=== PATIENT | female | born 1940 | race Caucasian/White ===

== ENCOUNTER 2021-12-16 21:55 | Emergency (ER) | payer OTHER ==
[~2021-12-16] VITALS: Ht 167.6 cm; Wt 50.8 kg
[~2021-12-16 21:55] MED LIST: ASPIR-TRIN325 MG PO; ATROVENT HFA12.9 GM; CALTRATE 600 W1 EACH PO; CRANBERRY500 MG PO; FISH OIL 1,0001 EACH PO; FUROSEMIDE20 MG PO; GEMFIBROZIL600 MG PO; HYDRALAZINE HCL10 MG PO; HYDROCODON-ACE1 EA11 PO; IMIPRAMINE PAM100 MG PO; POTASSIUM99 M1 PO; SPIRIVA18 MCG INH; VALIUM5 MG PO; VENTOLIN HFA18 GM INH; VITAMIN D31000 UNI1 PO
[2021-12-16 22:33] LABS: BASOPHILS # (AUTO) 0.1 (0.0-0.1); BASOPHILS % 0.8 % (0.0-1.0); EOSINOPHILS # (AUTO) 0.1 (0.0-0.4); EOSINOPHILS % 1.2 % (0.0-6.0); HEMATOCRIT 43.3 % (34.2-44.1); HEMOGLOBIN 13.3 g/dL (12.0-16.0); MEAN CORPUSCULAR HEMOGLOBIN 32.8 pg (28-32); MEAN CORPUSCULAR HGB CONC 30.7 g/dL (31-35); MEAN CORPUSCULAR VOLUME 106.7 fL (81-99); MONOCYTES # (AUTO) 0.9 (0.2-0.8); MONOCYTES % 7.1 % (4.4-11.3); NEUTROPHILS # (AUTO) 7.8 (2.1-6.9); NEUTROPHILS % 65.6 % (38.7-80.0); PLATELET COUNT 225 x10e3/uL (140-360); RED BLOOD COUNT 4.06 x10e6/uL (3.6-5.1); RED CELL DISTRIBUTION WIDTH 13.1 % (11.7-14.4)
[2021-12-16 22:48] LABS: ALBUMIN 3.7 g/dL (3.5-5.0); ALBUMIN/GLOBULIN RATIO 0.9 (0.8-2.0); ANION GAP 6.9 mmol/L (8-16); CALCIUM 8.9 mg/dL (8.4-10.2); CREATININE, SERUM 0.89 mg/dL (0.57-1.11); POTASSIUM 3.9 mmol/L (3.5-5.1)
[2021-12-16] MEDS ORDERED: AZITHROMYCIN250 MG PO (23:35)
[2021-12-16] MEDS ORDERED: PREDNISONE20 MG PO (23:37)
[2021-12-16] MEDS ORDERED: ALBUTEROL/IPRATROPIUM 3 ML NEB NEB ONE (23:45)
== END 2021-12-17 00:30 | disposition home or self-care (01) ==
LOC: ER 22:26
DX: R06.00 Dyspnea, unspecified (principal); J44.1 Chronic obstructive pulmonary disease with (acute) exacerbation; Z20.822 Contact with and (suspected) exposure to COVID-19; F17.210 Nicotine dependence, cigarettes, uncomplicated
CPT/HCPCS: 36415; 71045; 80053; 82550; 82553; 83880; 84484; 85025; 93005; 99284; U0002